=== PATIENT | female | born 1985 | race Hispanic/Latino ===

== ENCOUNTER 2017-09-25 11:48 | Outpatient (CLI) | payer MEDICAID ==
[2017-09-25 12:08] VITALS: BP 134/79
--- NOTE | 2017-09-25 14:07 | Ultrasound Report ---
ULTRASOUND BIOPHYSICAL PROFILE: History: well being Technique: Transabdominal ultrasound with Doppler interrogation. 2 - breathing movements 2 - movements 2 - posture and tone 2 - Qualitative amniotic fluid volume 8 - TOTAL SCORE OF POSSIBLE 8 Heart Rate (bpm) 164
[2017-09-27] MEDS ORDERED: D5NS 1,000 ML IV SCH (00:01)
[2017-09-27] MEDS ORDERED: NovoLIN R 100 UNITS in NACL 0.9% 99 ML IV SCH (00:01)
== END 2017-09-25 14:32 | disposition home or self-care (01) ==
LOC: TRG 11:48
PROVIDERS: ATTEND Obstetrics & Gynecology
DX: Z34.93 Encounter for supervision of normal pregnancy, unspecified, third trimester (principal); Z3A.37 37 weeks gestation of pregnancy
CPT/HCPCS: 76819

== ENCOUNTER 2017-09-27 12:31 | Outpatient (CLI) | payer MEDICAID ==
--- NOTE | 2017-09-27 14:35 | Ultrasound Report ---
Limited OB ULTRASOUND: Diabetes. Gestation: Godfrey Position: Cephalic RUBY = 13.1 cm Heart Rate: 147 BPM ESTIMATED GESTATIONAL AGE IS 37 WEEKS 5 DAYS. BIOPHYSICAL PROFILE: 2 - breathing movements 2 - movements 2 - posture and tone 2 - Qualitative amniotic fluid volume 8 - TOTAL SCORE OF POSSIBLE 8 Heart Rate (bpm) 147
[2017-09-27 14:41] VITALS: BP 137/65
== END 2017-09-27 14:58 | disposition home or self-care (01) ==
LOC: TRG 12:31
PROVIDERS: ATTEND Obstetrics & Gynecology
CPT/HCPCS: 59025; 76815; 76819

== ENCOUNTER 2017-10-01 06:12 | Inpatient (IN) | payer MEDICAID ==
--- NOTE | 2017-09-25 13:42 | History and Physical Report ---
History of Present Illness Chief complaint: 32 yo [id number] with EDC of 10/13/17 now at 38wk+2d by good follow-up by our office and by [facility] admitted for repeat c/s at 38 wk for chronic HTN on no meds and Type 2 DM now requiring 520u of insulin in divided doses for maintenance of acceptable glucoses. MBT Apos, Rubella NOT IMMUNE, GBS pos. Last known EFW was 6#13oz 3 wk ago. Fetus had ECHO at [place] suspicious for ventricular hypertrophy and thickened papillary muscles and they recommended that the have a "non-urgent" echo prior to d/c from the hospital. Dr Benitez recommended that this patient take only half of her HS dose pre- surgery and none in the AM so she will be brought in at 7AM and glucoses checked immediately and probable IV infusion of D5 with insulin drip until delivered. DOS patient arrives with glucose of 110 so will preload with LR and proceed to c /s without glucose and insulin drip. Maternal Dx: 1. Type 2 DM on Humalog (100u/mL) with meals: B-88u, L-98u, D-114u and Humulin N (u/100mL) B-110u and HS-110u 2. Chronic HTN currently no meds and no pre-eclampsia 3. Morbid Obesity BMI 44 4. Previous c/s 5. mildly elevated LFT (AST 56, ALT 49) compatible with mild fatty liver (non- alcoholic steatohepatitis) 6. Hx previous PP DEPRESSION History of present illness: Remainder of H&P from [facility] and confirmed today OB Intake Father of baby: [place] contact #: [phone] Vital Signs Height: 62.5 in. Weight (lb): 242 BMI: 43.6 Pre- Weight: 242 BP: 124/ 80 mm Hg Ur. Protein: Negative Ur. Glucose: Negative Chief Complaint/Current Status: pt presents for missed period; c/o cramping and nausea..tward Last pap-01/2016 per pt...tward irregular cycles, EDC establihsed by 6 weeks u/s ...................................................................Brittny Anup DUFFY February 21, 2017 11:32 AM Menstrual History Regularity: irregular Menses every: 30-40 days Duration: 3 LMP: 12/25/2016 LMP reliability: definite LMP character: normal test type: urine test Date: 02/21/2017 BC at conception: none Planned ? no EDC Calculations LMP: 10/01/2017 EDC Confirmation: 10/13/2017 Gestational Age: 6 4/7 weeks Past History : 4 Term Births: 1 Living Children: 1 Para: 1 Aborta: 2 Spont. Ab: 1 Ectopics: 1 # 1 Delivery date: 02/19/2008 Weeks Gestation: 9 Delivery type: ectopic Comments: sx removal , ruptured during sx, left tube removal # 2 Delivery date: 06/03/2009 Weeks Gestation: 40+2 Delivery type: Vaginal Anesthesia type: epidural Delivery location: [facility] Sex: female weight: 9.13 Comments: pre-eclampsia/eclampsia # 3 Delivery date: 2010 Delivery type: SAB Comments: D&C Risk Factors: Smoked Tobacco Use: Never smoker Smokeless Tobacco Use: Never Passive smoke exposure: no Drug use: no HIV high-risk behavior: low risk Caffeine use: <1 drinks per day Alcohol use: no Exercise: no Seatbelt use: 100 % Family History Risk Factors: Family History of ME in females < 65 years old: no Family History of ME in males < 55 years old: no Dietary Counseling: pn yes Past Medical History: HTN IDDM Past Surgical History: positive D&C: (11/22/2010) 2008 Cholecystectomy Ectopic 2007 (L tube removed) Eye - muscle clip lump removed from neck Past Medical History Surgery (Non-progress worker): positive D&C: (11/22/2010) 2008 Cholecystectomy Ectopic 2007 (L tube removed) Eye - muscle clip lump removed from neck Abnormal PAP: negative FAHEEM Exposure: negative Infertility: negative Uterine Anomaly: negative Uterine Surgery (not C/S): negative Other Gynecologic Problems: negative Family Hx: fh dm--sister, mgm, mgf maternal aunt - breast CA No ovarian, or colon cancer Social Hx: no smoking, etoh or illicit drug abuse single- Infection History Hx of STD: none HIV Risk Eval: low risk Hepatitis B Risk Eval: low risk Personal hx. of genital herpes: no Partner hx. of genital herpes: no Rash, Viral, or Febrile illness since last LMP? no Varicella/Chicken Pox Status: Previous Disease Genetic History Congenital Heart Defect: Mom: no Dad: no Jero Disease: Mom: no Dad: no Thalassemia Mom: no Dad: no Neural Tube Defect Mom: no Dad: no Down's Syndrome Mom: no Dad: no Krunal-Sachs Mom: no Dad: no Sickle Cell Disease/Trait Mom: no Dad: no Hemophilia Mom: no Dad: no Muscular Dystrophy Mom: no Dad: no Cystic Fibrosis Mom: no Dad: no Wells Chorea Mom: no Dad: no Mental Retardation Mom: no Dad: no Fragile X Mom: no Dad: no Other Genetic/Chromosomal Disorder Mom: no Dad: no Child w/other defect Mom: no Dad: no Enviromental Exposures Xray Exposure: no Medication, drug, or alcohol use since LMP: no Chemical/Other Exposure: no Exposure to Cat Liter: no Hx of Parvovirus (Fifth Disease): no Occupational Exposure to Children: none FALSECurrent Allergies (reviewed today): * AUGMENTIN--RASH/HIVES (Critical) Laboratory Results Date/Time Collected: 02/21/2017 Routine Urinalysis Leukocytes: negative Nitrite: negative Urobilinogen: negative Protein: Negative Blood: negative Ketone: negative Bilirubin: negative Glucose: Negative Urine HCG: positive Review of Systems General Denies fever, chills, sweats, anorexia, fatigue, weakness, malaise, weight loss and sleep disorder. Denies nausea, vomiting, headache, swelling of legs, abdominal pain, vaginal discharge, vaginal bleeding and contractions. Denies vaginal discharge, incontinence, dysuria, hematuria, urinary frequency, amenorrhea, menorrhagia, abnormal vaginal bleeding, pelvic pain, genital sores, decreased libido, painful periods, painful sex, urinary urgency, hot flashes, vaginal dryness, vaginal itching and vaginal odor. CV Denies chest pains, palpitations, syncope, dyspnea on exertion, orthopnea, PND and peripheral edema. Resp Denies cough, dyspnea at rest, excessive sputum, hemoptysis, wheezing and pleurisy. GI Denies nausea, vomiting, diarrhea, constipation, change in bowel habits, abdominal pain, melena, hematochezia, jaundice, gas/bloating, indigestion/ heartburn, dysphagia and odynophagia. Endo Denies cold intolerance, heat intolerance, polydipsia, polyphagia, polyuria and unusual weight change. Breast Denies left breast lump, right breast lump, nipple discharge, bloody discharge from nipple, breast pain, abnormal mammogram and breast enlargement. MS Denies back pain, joint pain, joint swelling, muscle cramps, muscle weakness, stiffness, arthritis, sciatica, restless legs, leg pain at night and leg pain with exertion. Derm Denies rash, itching, dryness and suspicious lesions. Neuro Denies paralysis, paresthesias, headache, seizures, tremors, vertigo, transient blindness, frequent falls, frequent headaches and difficulty walking. Psych Denies depression, anxiety, irritability and mood swings. Eyes Denies blurring, diplopia, irritation, discharge, vision loss, eye pain and photophobia. ENT Denies earache, ear discharge, tinnitus, decreased hearing, nasal congestion, nosebleeds, sore throat and hoarseness. Allergy Denies urticaria, allergic rash, hay fever and recurrent infections. Heme Denies abnormal bruising, bleeding and enlarged lymph nodes. PHYSICAL EXAM HEENT: PERRLA, normal conjunctiva, external nose and nasal mucosa normal, oropharynx clear Neck/Thyroid: supple, thyroid normal Skin no significant abnormal lesions or rashes Chest: respiratory effort normal, clear to auscultation Breasts: normal without skin changes or masses CV: regular, normal S1-S2, no murmur, no rub, no gallop Abdomen: normal bowel sounds, soft, nontender, no HSM Musculoskeletal: grossly normal ROM in joints, no joint tenderness or muscle weakness Neuro: grossly normal DTRs, sensation, strength, cranial nerves Extremities: no clubbing, cyanosis, or edema TECHNICAL ADVISOR Exams Vulva/Vagina: No lesions, normal BUS, normal rugae Cervix: No lesions; no cervical motion tenderness Uterus: normal size and position, midline, mobile Fundal Ht: 6-8 FHT: 138 Adnexae: no masses or tenderness Rectovaginal: no masses or tenderness Flowsheet View for Follow-up Visit Estimated weeks of gestation: 6 4/7 Weight: 242 Blood pressure: 124 / 80 Urine protein: Negative Urine glucose: Negative Urine nitrite: negative Fundal height: 6-8 FHR: 138 's Physician: DR DENNY SOLOMON Medications and Allergies Allergies Allergy/AdvReac Type Severity Reaction Status Date / Time amoxicillin [From Augmentin] Allergy Hives Unverified 09/25/17 11:48 clavulanic acid Allergy Hives Unverified 09/25/17 11:48 [From Augmentin] Results Result Diagrams: 10/01/17 07:51 10/01/17 07:15 All other labs normal. Assessment and Plan - Patient Problems (1) Previous delivery affecting Status: Acute Plan to address problem: repeat (2) Diabetes mellitus during in third trimester Status: Acute Qualifiers: Diabetes in type: pre-existing, type 2 Qualified Code(s): O24.113 - Pre-existing type 2 diabetes mellitus, in , third trimester (3) Hypertension complicating in third trimester Status: Chronic Plan to address problem: on no meds (4) Morbid obesity with BMI of 40.0-44.9, adult Status: Acute (5) Fatty (change of) liver, not elsewhere classified Status: Acute Plan to address problem: mildly elevated LFT (6) Abnormal echocardiogram affecting antepartum care of mother Status: Acute Plan to address problem: Needs echo prior to d/c
[~2017-10-01 06:12] MED LIST: BICITRA PO SCH; D5NS 1,000 ML IV SCH; LACTATED RINGERS 1,000 ML IV SCH; NovoLIN R 100 UNITS in NACL 0.9% 99 ML IV SCH; PEPCID IV ONE; PITOCin/NS 20 UNIT/1000ML DRIP 20 UNITS/1,000 ML BAG IV SCH; REGLAN IV ONE
[2017-10-01] MEDS ORDERED: LACTATED RINGERS 2,000 ML ONE (07:14)
--- NOTE | 2017-10-01 07:41 | Anesthesia Day of Surgery ---
Anesthesia Day of Surgery - Day of Surgery Patient Examined: Yes Patient H&P Reviewed: Yes Patient is NPO: Yes
--- NOTE | 2017-10-01 07:41 | Anesthesia Consultation ---
Anesthesia Consult and Med Hx Date of service: 10/01/17 - Airway Anesthetic Teeth Evaluation: Good ROM Head & Neck: Adequate Mental/Hyoid Distance: Adequate Mallampati Class: Class III Intubation Access Assessment: Possibly Difficult - Pre-Operative Health Status ASA Pre-Surgery Classification: ASA3 Proposed Anesthetic Plan: Epidural, Spinal - Pulmonary Hx Asthma: No - Cardiovascular System Hx Hypertension: No - Central Nervous System Hx Seizures: No Hx Psychiatric Problems: No - Endocrine Hx Renal Disease: No Hx Insulin Dependent Diabetes: Yes Hx Hypothyroidism: No Hx Hyperthyroidism: No - Hematic Hx Anemia: No Hx Sickle Cell Disease: No - Other Systems Hx Alcohol Use: No Hx Obesity: Yes (BMI 49.1)
[2017-10-01 07:51] LABS: Alanine Aminotransferase 17 units/L (7-56); Albumin 3.3 g/dL (3.9-5); Albumin/Globulin Ratio 1.1 %; Alkaline Phosphatase 179 units/L (35-129); Anion Gap 19 mmol/L; BUN/Creatinine Ratio 35; Blood Urea Nitrogen 14 mg/dL (7-17); Calcium 9.8 mg/dL (8.4-10.2); Carbon Dioxide 22 mmol/L (22-30); Chloride 102.2 mmol/L (98-107); Glucose 103 mg/dL (65-100); Potassium 4.5 mmol/L (3.6-5.0); Sodium 139 mmol/L (137-145); Total Protein 6.4 g/dL (6.3-8.2)
[2017-10-01] MEDS ORDERED: CLEOCIN 600 MG/50 mL 600 MG/50 ML BAG IV NR (08:00)
[2017-10-01] MEDS ORDERED: SODIUM CHLORIDE FLUSH SYRINGE 10 ML IV NR (08:00)
[2017-10-01] MEDS ORDERED: GARAMYCIN 100 MG in NACL 0.9% 100 ML IV SCH (08:00)
[2017-10-01] MEDS ORDERED: GARAMYCIN/NS 80 MG/100 ML 100 ML IV ONE (08:04)
[2017-10-01] MEDS ORDERED: NACL 0.9% 1000 ML 1,000 ML ONE (08:08)
[2017-10-01] MEDS ORDERED: REGLAN ONE (08:17)
[2017-10-01] MEDS ORDERED: PEPCID IV ONE (08:17)
[2017-10-01 08:28] LABS: Hematocrit 37.2 % (30.3-42.9); Hemoglobin 12.2 gm/dl (10.1-14.3); Mean Corpuscular HGB Conc 33 % (30-34); Mean Corpuscular Hemoglobin 27 pg (28-32); Mean Corpuscular Volume 81 fl (79-97); Platelet Count 203 K/mm3 (140-440); Red Blood Count 4.57 M/mm3 (3.65-5.03); Red Cell Distribution Width 15.2 % (13.2-15.2)
[2017-10-01] MEDS ORDERED: MORPHINE ONE (08:49)
[2017-10-01] MEDS ORDERED: WATER FOR IRRIG STERILE IR ONE (09:18)
[2017-10-01] MEDS ORDERED: NACL 0.9% IR ONE (09:18)
[2017-10-01] MEDS ORDERED: NARCAN 0.4 MG/1 ML IV PRN ×2 (10:00→10:54)
[2017-10-01] MEDS ORDERED: TORADOL IV PRN (10:00)
[2017-10-01] MEDS ORDERED: PHENERGAN PR PRN (10:00)
[2017-10-01] MEDS ORDERED: LACTATED RINGERS 1,500 ML IV NR (10:00)
[2017-10-01] MEDS ORDERED: DILAUDID IV PRN (10:00)
[2017-10-01] MEDS ORDERED: ZOFRAN IV PRN ×2 (10:00→10:54)
[2017-10-01] MEDS ORDERED: BENADRYL IV PRN (10:00)
[2017-10-01] MEDS ORDERED: XYLOCAINE MPF 2% ONE (10:10)
[2017-10-01] MEDS ORDERED: NEO SYNEPHRINE/NS Syringe(OR USE) IV ONE (10:30)
[2017-10-01] MEDS ORDERED: NACL 0.9% 1000 ML 2,000 ML ONE (10:40)
[2017-10-01] MEDS ORDERED: ZOFRAN ONE (10:42)
--- NOTE | 2017-10-01 10:51 | Operative Report ---
Operative Report Operative Report: Date of Procedure: 10/01/2017 Procedure name(s): Repeat transverse low segment section Pre-operative diagnosis: Intrauterine at 38 weeks and 2 days, maternal diabetes mellitus requiring more than 500 units per day, maternal hypertension, mild fatty liver, morbid obesity, previous section Post-operative diagnosis: Same Surgeon: Pamela Monaco M.D. Tar Kettle Runner: NATALI Anesthesia: Spinal epidural EBL: 800 mL : 4301 gm (9 lbs. 8 oz.) male with Apgars of 8 and 9 Time of : 0937 Findings Large maternal panniculus that had to be taped up to the top of the table, normal tubes, uterus and ovaries Procedure The patient was taken to the operating room and after adequate anesthesia was obtained she was placed in the supine position in left lateral tilt. Sequential compression devices were in place on both lower extremities and a Tobias catheter was placed in a sterile fashion. The abdomen was then prepped and draped in the usual fashion. Surgical time-out was done with the entire OR team attentive. A Pfannenstiel incision was made with a scalpel and sharp dissection was carried down through all layers of the abdomen in the usual fashion. The abdomen was entered bluntly and the lower uterine segment was identified. The presenting part was palpated and a bladder flap was created with the Metzenbaum scissors. The scalpel was used to incise the uterus in a transverse fashion and this incision was extended bluntly with finger traction and the membranes were ruptured. My hand was inserted into the uterus. The vertex was grasped, rotated to an OA presentation and delivered with a combination of traction and fundal pressure. The cord was clamped and cut and a viable infant was suctioned and handed off to the attending NICU staff and was a 4301 gm (9 lbs. 8 oz.) male with Apgars of 8 and 9. The placenta was removed manually, the interior of the uterus was cleansed with moist lap packs and the uterus was exteriorized. The uterine incision was closed with a double imbricating layer of 0 Vicryl suture in a running fashion. Hemostasis was adequate and the uterus was returned to the abdomen. Uterus was well contracted. The abdomen was then closed in layers: the rectus muscles were closed with several [id number] sutures of 0 Vicryl, the fascia was closed with running sutures of 0 Vicryl starting at both side corners in turn and tied together in the midline. The subcutaneous tissue was irrigated and then closed with several interrupted sutures of 2-0 plain and the skin was closed with a running subcuticular suture of 4-0 Vicryl. Sponge and Lap count correct X 3, estimated blood loss was 800mL and the Tobias was draining clear urine. The patient tolerated the procedure well and was discharged to PACU in good condition.
[2017-10-01] MEDS ORDERED: PERCOCET 5/325 PO PRN (10:54)
[2017-10-01] MEDS ORDERED: MILK OF MAGNESIA PO PRN (10:54)
[2017-10-01] MEDS ORDERED: TUCKS PAD TP PRN (10:54)
[2017-10-01] MEDS ORDERED: MORPHINE IV PRN (10:54)
[2017-10-01] MEDS ORDERED: MYLICON PO PRN (10:54)
[2017-10-01] MEDS ORDERED: SODIUM CHLORIDE FLUSH SYRINGE 10 ML IV SCH (11:00)
[2017-10-01] MEDS ORDERED: D5LR 1,000 ML IV SCH (11:00)
[2017-10-01] MEDS ORDERED: D50W (25GM) Syringe IV PRN ×2 (11:00→15:22)
[2017-10-01] MEDS ORDERED: PITOCin/NS 20 UNIT/1000ML DRIP 20 UNITS/1,000 ML BAG IV SCH (11:00)
[2017-10-01] MEDS ORDERED: PHENERGAN ONE (11:37)
[2017-10-01] MEDS: MOTRIN PO SCH ×2 (12:00→18:00)
--- NOTE | 2017-10-01 15:43 | Post Anesthesia Evaluation ---
- Post Anesthesia Evaluation Patient Participated: Yes Airway Patent: Yes Stable Respiratory Function: Yes Temp > 96.8F: Yes Pain Manageable: Yes Adequeate Hydration: Yes Anesthesia Complications: No
[2017-10-01] MEDS ORDERED: BENADRYL IV ONE (16:00)
[2017-10-01] MEDS: CLEOCIN 600 MG/50 mL 600 MG/50 ML BAG IV SCH ×2 (16:08→23:01)
[2017-10-01] MEDS: TORADOL IV SCH (18:00)
[2017-10-01 21:44] LABS: Hematocrit 32.4 % (30.3-42.9); Hemoglobin 10.8 gm/dl (10.1-14.3)
[2017-10-02] MEDS: ZOLOFT PO SCH ×2 (00:09→12:23)
[2017-10-02] MEDS: MOTRIN PO SCH ×4 (00:10→23:45)
[2017-10-02] MEDS: TORADOL IV SCH ×4 (00:12→19:41)
--- NOTE | 2017-10-02 06:54 | Progress Note ---
Assessment and Plan - Patient Problems (1) delivery delivered Onset Date: ~10/02/17 Current Visit: Yes Status: Acute Plan to address problem: Pt very anxious about status of her son. Baby is being evaluated in Holding Nursery for tachypenea and retracting VSS pt has an elevated pulse w/o any complaints FF below umb Lochia small Dressing D&I to be removed this AM H&H drop r/t blood loss from surgery Pt is asymptomatic anemia. Doing well s/p c/ s BS 70-80 P: continue pathway Advance diet and activity as tolerated. Subjective - Subjective Date of service: 10/02/17 ("I want to eat.") Principal diagnosis: IDDM; Day # 1 s/p repeat section Patient reports: appetite normal, voiding normally, pain well controlled, ambulating normally : in NICU (tachypenea/retracting) Objective - Vital Signs Latest vital signs: Vital Signs Temp Pulse Resp BP BP Pulse Ox 10/02/17 04:00 98.2 F 112 H 20 113/76 10/02/17 00:12 18 10/02/17 00:10 18 10/02/17 00:00 99.2 F 100 H 20 132/72 10/01/17 20:30 99.5 F 102 H 20 136/81 10/01/17 16:58 98.6 F 101 H 20 122/72 10/01/17 12:15 98.2 F 79 139/87 10/01/17 11:55 86 18 140/60 99 10/01/17 11:35 104 H 16 145/82 99 10/01/17 11:20 101 H 16 140/66 99 10/01/17 11:15 68 16 132/66 98 10/01/17 11:00 71 16 104/60 98 10/01/17 10:52 98.3 F 78 16 117/64 96 10/01/17 07:17 97.9 F 74 18 130/86 Intake and Output 10/01/17 10/01/17 10/02/17 14:59 22:59 06:59 Intake Total 2049 650 240 Output Total 530 1600 400 Balance 1520 -950 -160 Intake: IV 2050 50 CLEOCIN 600 MG/50 mL 600 50 mg In 50 ml @ 100 mls/hr IV Q8H [facility] Rx#:[id number] Oral 600 240 Output: Urine 530 1600 400 Indwelling Catheter 1200 400 Uretheral (Tobias) 140 400 Other: Total, Intake Amount 120 240 Total, Output Amount 600 400 Weight 260 lb Patient Weight 10/02/17 06:59 Weight 260 lb - Exam Breasts: Present: normal Cardiovascular: Present: Regular rate Lungs: Present: Normal air movement Abdomen: Present: normal appearance, soft, normal bowel sounds Uterus: Present: normal, firm Extremities: Present: normal, edema Deep Tendon Reflex Grade: Normal +2 Incision: Present: normal, dry, intact - Labs Labs: Abnormal lab results 10/01/17 10/01/17 10/01/17 Range/Units 07:09 07:15 07:51 MCH 27 L (28-32) pg Creatinine 0.4 L (0.7-1.2) mg/dL Glucose 103 H (65-100) mg/dL POC Glucose 111 H (70-105) Alkaline Phosphatase 179 H (35-129) units/L Albumin 3.3 L (3.9-5) g/dL
--- NOTE | 2017-10-02 10:57 | Progress Note ---
Subjective Date of service: 10/02/17 Principal diagnosis: IDDM; Day # 1 s/p repeat section Interval history: 1st POD after Patient is in the bed, comfortable. Pain is well controlled with pain meds. Ambulated well. No residual neurological deficit. No anesthesia complications Objective - Constitutional Vitals: Vital Signs - 12hr 10/02/17 10/02/17 10/02/17 00:00 00:10 00:12 Temperature 99.2 F Pulse Rate 100 H Respiratory 20 18 18 Rate Blood Pressure 132/72 [Right] 10/02/17 04:00 Temperature 98.2 F Pulse Rate 112 H Respiratory 20 Rate Blood Pressure 113/76 [Right] - Labs CBC & Chem 7: 10/01/17 21:29 10/01/17 07:15
[2017-10-02] MEDS: PERCOCET 5/325 PO PRN ×3 (13:40→23:46)
[2017-10-03] MEDS: TORADOL IV SCH (01:31)
[2017-10-03] MEDS: MOTRIN PO SCH ×2 (05:31→15:36)
[2017-10-03] MEDS ORDERED: BOOSTRIX IM ONE (06:00)
[2017-10-03] MEDS ORDERED: D50W (25GM) Vial IV PRN (06:13)
--- NOTE | 2017-10-03 07:23 | Discharge Summary ---
Providers - Providers Date of Admission: 10/01/17 06:12 Date of discharge: 10/03/17 (pt requesting to be d/c today) Attending physician: LAURA LONG Primary care physician: LAURA LONG Hospitalization Reason for admission: section Delivery: Procedure: repeat low transverse Episiotomy: none Laceration: none Incision: normal, dry, intact Other procedures: none complications: none Discharge diagnosis: IUP at term delivered [place] baby: male Hospital course: uncomplicated repeat section Pt w/o complaint VSS FF below umb Lochia scant Incision D&I No s/sx of anemia "My sugar was up because I ate candy. I was hungry." Pt encouraged to take appropriate diet and to take insulin as prescribed. She will f/u with her endo for mgt. Doing well s/p repeat c/s P: d/c today with instructions RTO 1 week for postop visit and son's circ RX for Zoloft provided at d/c per pt's request. Condition at discharge: Good Disposition: DC-01 TO HOME OR SELFCARE - Discharge Diagnoses (1) delivery delivered Status: Acute Comment: RTO 1 week postop Plan - Discharge Medications Prescriptions: Ibuprofen [Motrin 800 MG tab] 800 mg PO Q8HR PRN #30 tablet PRN Reason: Pain Lidocain2.5%/Prilocai2.5% [Emla] 5 gm TP 1XW #1 tube oxyCODONE /ACETAMINOPHEN [Percocet 5/325 mg] 1 - 2 tab PO Q4HR PRN #30 tab PRN Reason: Pain Sertraline [Zoloft] 50 mg PO QDAY #30 tablet Sertraline [Zoloft] 50 mg PO QDAY #30 tablet - Provider Discharge Summary Activity: routine, no sex for 6 weeks, no heavy lifting 4 weeks, no strenuous exercise Diet: routine Instructions: routine Additional instructions: [] Smoking cessation referral if applicable(refer to patient education folder for contact #) [] Refer to [facility] Booklet Call your doctor immediately for: * Fever > 100.5 * Heavy vaginal bleeding ( >1 pad per hour) * Severe persistent headache * Shortness of breath * Reddened, hot, painful area to leg or breast * Drainage or odor from incision. * Keep incision clean and dry at all times and follow doctor's instructions regarding bathing/showering - Follow up plan Follow up: LAURA LONG MD [Primary Care Provider] - 7 Days (Congratulations! Please call [phone] to schedule your postoperative visit and your son's circumcision in one week. Bring the EMLA cream with you to his visit. Take medications as prescribed. Call with concerns.)
[2017-10-03 09:28] VITALS: BP 127/75
[2017-10-03] MEDS: PERCOCET 5/325 PO PRN ×2 (10:38→15:36)
== END 2017-10-03 15:50 | disposition home or self-care (01) | DRG 765 ==
LOC: APU 06:12 → OB 12:40
PROVIDERS: ADMIT Obstetrics & Gynecology; ATTEND Obstetrics & Gynecology
PROC: 10D00Z1 Extraction of Products of Conception, Low, Open Approach (ICD-10-PCS; principal; 2017-10-01)
DX: O35.9XX0 Maternal care for (suspected) fetal abnormality and damage, unspecified, not applicable or unspecified (principal); O24.32 Unspecified pre-existing diabetes mellitus in childbirth; O34.211 Maternal care for low transverse scar from previous cesarean delivery; O10.92 Unspecified pre-existing hypertension complicating childbirth; E66.01 Morbid (severe) obesity due to excess calories; E11.9 Type 2 diabetes mellitus without complications; O99.824 Streptococcus B carrier state complicating childbirth; O99.214 Obesity complicating childbirth; O26.62 Liver and biliary tract disorders in childbirth; K76.0 Fatty (change of) liver, not elsewhere classified; D64.9 Anemia, unspecified; O99.03 Anemia complicating the puerperium; Z68.42 Body mass index [BMI] 45.0-49.9, adult; Z3A.38 38 weeks gestation of pregnancy; Z37.0 Single live birth; Z71.3 Dietary counseling and surveillance; Z79.4 Long term (current) use of insulin; Z90.49 Acquired absence of other specified parts of digestive tract; Z80.3 Family history of malignant neoplasm of breast; Z83.3 Family history of diabetes mellitus; Z88.1 Allergy status to other antibiotic agents
CPT/HCPCS: 36415; 80053; 82962; 85014; 85018; 85027; 86850; 86900; 86901; 88307; 90471; 90715; J1200; J1580; J1815; J1885; J2270; J2370; J2405; J2590; J2765; J7030; J7120; J7121; Q0169